=== PATIENT | female | born 1980 | race Caucasian/White ===

== ENCOUNTER 2018-07-26 16:29 | Emergency (ER) | payer MEDICAID ==
[~2018-07-26] VITALS: Ht 160 cm; Wt 79.4 kg
[~2018-07-26 16:29] MED LIST: NARATRIPTAN 1 MG; ONDANSETRON 4 MG
[2018-07-26 16:47] VITALS: BP_SYST 134
--- NOTE | 2018-07-26 16:57 | NUR ---
Patient triaged and placed in waiting room. VSS and patient appears in no acute distress at this time. Accompanied by self, awaiting available bed, and MD notified of need for MSE.
[2018-07-26] MEDS ORDERED: KETOROLAC TROMETHAMINE 30 MG VIAL IM ONE (17:45)
--- NOTE | 2018-07-26 17:45 | NUR ---
Patient arrive to ER with lower back pain 8/10 radiating to the left leg. Patient states she has been taking Ibuprofen with no relief. Patient A/O x4, VS stable, respirations even, afebrile.
--- NOTE | 2018-07-26 17:45 | NUR ---
Pt arrived to ER ambulatory,steady gait.
--- NOTE | 2018-07-26 17:50 | NUR ---
Dr Swanson at bedside examining patient
[2018-07-26 18:14] VITALS: BP_SYST 132
--- NOTE | 2018-07-26 18:16 | NUR ---
Patient given written and verbal discharge instructions and verbalizes understanding. ER MD discussed with patient the results and treatment provided. Patient in stable condition. ID arm band removed. Rx of Flexerin, Ibuprofen and [place] given. Patient educated on pain management and to follow up with PMD. Pain Scale 3/10 tolerable for patient. Opportunity for questions provided and answered. Medication side effect fact sheet provided.
== END 2018-07-26 18:14 | disposition home or self-care (01) ==
LOC: SED 16:29
DX: M54.42 Lumbago with sciatica, left side (principal); J45.909 Unspecified asthma, uncomplicated; I10 Essential (primary) hypertension
CPT/HCPCS: 81025; 96372; 99283; J1885

== ENCOUNTER 2019-04-12 08:19 | Emergency (ER) | payer MEDICAID ==
[~2019-04-12] VITALS: Ht 160 cm; Wt 74.8 kg
[2019-04-12 08:20] VITALS: BP_SYST 138
[2019-04-12] MEDS ORDERED: IBUPROFEN 800 MG TABLET PO ONE (09:00)
[2019-04-12 10:28] VITALS: BP_SYST 138
== END 2019-04-12 10:30 | disposition home or self-care (01) ==
LOC: SED 08:19
DX: N60.02 Solitary cyst of left breast (principal); N64.4 Mastodynia; J45.909 Unspecified asthma, uncomplicated; I10 Essential (primary) hypertension
CPT/HCPCS: 76642; 99284